=== PATIENT | male | born 1980 | race Caucasian/White ===

== ENCOUNTER → 2023-06-04 15:37 | Outpatient (REF) | payer MEDICARE, OTHER, SELFPAY | LOC: WOUND 15:37 | PROVIDERS: ATTENDING PHYSICIAN Surgery | DX: L89.613 Pressure ulcer of right heel, stage 3 (principal); L89.322 Pressure ulcer of left buttock, stage 2; G82.21 Paraplegia, complete; Z79.01 Long term (current) use of anticoagulants; C67.9 Malignant neoplasm of bladder, unspecified; L89.894 Pressure ulcer of other site, stage 4; L89.226 Pressure-induced deep tissue damage of left hip; S31.109A Unspecified open wound of abdominal wall, unspecified quadrant without penetration into peritoneal cavity, initial encounter; X58.XXXA Exposure to other specified factors, initial encounter | CPT/HCPCS: 17250; 99213 ==

== ENCOUNTER → 2023-08-28 10:18 | Outpatient (REF) | payer MEDICARE, OTHER, SELFPAY | LOC: MRI 10:18 | PROVIDERS: ATTENDING PHYSICIAN Orthopaedic Surgery Hand Surgery | DX: M25.511 Pain in right shoulder (principal); M25.512 Pain in left shoulder | CPT/HCPCS: 72141 ==